=== PATIENT | male | born 1980 | race Caucasian/White ===

== ENCOUNTER 2018-07-18 23:30 | Emergency (ER) | payer OTHER ==
[~2018-07-18] VITALS: Ht 172.7 cm; Wt 83.9 kg
--- NOTE | 2018-07-18 23:30 | NUR ---
Dr. Michelle evaluating patient at bedside.
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
--- NOTE | 2018-07-18 23:30 | NUR ---
PT BIB [facility], PREBOOK. TAKEN TO BED 11
[2018-07-18] MEDS ORDERED: BACITRACIN OINT 500 UNITS/GM PKT TP ONE ×2 (23:35→23:43)
[2018-07-18 23:37] VITALS: BP 128/78
[2018-07-18] MEDS ORDERED: IBUPROFEN 800 MG TAB PO ONE (23:40)
[2018-07-19 00:30] VITALS: BP 121/75
--- NOTE | 2018-07-19 00:30 | NUR ---
DISCHARGE PAPERS GIVEN. 0/10 PAIN. BLEEDING CONTROLLED. VSS. RX OF IBUPROFEN GIVEN. SIDE EFFECTS EXPLAINED. INSTRUCTED TO F/U WITH PCP AND WHEN TO RETURN TO ER. RELEASED AND CLEARED FOR DISCHARGE BY DR. HEWITT. NO NUTRTHER TREATMENT NECESSARY. PT ESCORTED BY [facility] OFFICERS. ORIGIONAL FORM GIVEN TO [facility].
== END 2018-07-19 00:30 ==
LOC: MED 23:30
DX: S40.812A Abrasion of left upper arm, initial encounter (principal); S40.811A Abrasion of right upper arm, initial encounter; S30.810A Abrasion of lower back and pelvis, initial encounter; S20.412A Abrasion of left back wall of thorax, initial encounter; S20.411A Abrasion of right back wall of thorax, initial encounter; S80.212A Abrasion, left knee, initial encounter; S80.211A Abrasion, right knee, initial encounter; F10.129 Alcohol abuse with intoxication, unspecified; V29.40XA Motorcycle driver injured in collision with unspecified motor vehicles in traffic accident, initial encounter; Y93.89 Activity, other specified; Y92.410 Unspecified street and highway as the place of occurrence of the external cause; Y99.8 Other external cause status; Y90.9 Presence of alcohol in blood, level not specified
CPT/HCPCS: 99283